=== PATIENT | female | born 1980 | race Caucasian/White ===

== ENCOUNTER 2020-09-20 13:47 | Emergency (ER) | payer MEDICARE, MEDICAID | END 2020-09-20 15:22 | disposition left against medical advice (07) | LOC: ER 13:48 | DX: R45.851 Suicidal ideations (principal); Z53.21 Procedure and treatment not carried out due to patient leaving prior to being seen by health care provider ==

== ENCOUNTER 2020-11-10 15:38 | Emergency (ER) | payer MEDICARE, MEDICAID ==
[~2020-11-10] VITALS: Ht 162.6 cm; Wt 72.7 kg
--- NOTE | 2020-11-10 15:56 | NUR ---
Pt received from [facility] after being a walkin to [facility] and being put on a 5150 for DTS. Pt cooperative with assessment. Flat/depressed affect.
[2020-11-10 16:40] LABS: BASOPHILS % (AUTO) 0.3 % (0-1); EOSINOPHILS # (AUTO) 0.1 X10'3 (0-0.9); HEMOGLOBIN 13.8 g/dl (12.0-16.0); LYMPHOCYTES # (AUTO) 2.7 X10'3 (1.1-4.8); LYMPHOCYTES % (AUTO) 24.2 % (21-51); MEAN CORPUSCULAR HEMOGLOBIN 29.6 PG (27.0-31.0); MEAN CORPUSCULAR HGB CONC 33.7 g/dL (33.0-36.5); MEAN CORPUSCULAR VOLUME 87.8 FL (78-98); MEAN PLATELET VOLUME 9.8 FL (7.4-10.4); MONOCYTES % (AUTO) 8.7 % (2-12); NEUTROPHILS # (AUTO) 7.3 X10'3 (1.8-7.7); NEUTROPHILS % (AUTO) 65.8 % (42-75); PLATELET COUNT 216 X10'3 (140-440); RED BLOOD COUNT 4.66 X10'6 (4.20-5.60); RED CELL DISTRIBUTION WIDTH 13.4 % (11.5-14.5); WHITE BLOOD COUNT 11.1 X10'3 (4.5-11.0)
[2020-11-10 16:54] LABS: D-DIMER 0.33 MG/L FEU (0-0.50)
[2020-11-10 17:07] LABS: ALANINE AMINOTRANSFERASE 18 U/L (12-78); ALBUMIN 4.1 G/DL (3.4-5.0); ALKALINE PHOSPHATASE 88 IU/L (46-116); ANION GAP 15 (8-16); ASPARTATE AMINO TRANSFERASE 10 U/L (10-37); BILIRUBIN,TOTAL 0.5 MG/DL (0.1-1.0); BLOOD UREA NITROGEN 13 MG/DL (7-18); BUN/CREATININE RATIO 10.7 (6.6-38.0); CALCIUM 8.8 MG/DL (8.5-10.1); CHLORIDE 106 MMOL/L (99-107); CREATININE 1.22 MG/DL (0.40-0.90); GLUCOSE 178 MG/DL (70-104); SODIUM 145 MMOL/L (135-145); TOTAL CARBON DIOXIDE 24.5 MMOL/L (24-32); TOTAL PROTEIN 8.3 G/DL (6.4-8.2); eGFR 48 ML/MIN
[2020-11-10 17:21] LABS: CLARITY,URINE SLIGHTLY CLOUDY (Clear); COLOR,URINE YELLOW (Yellow); GLUCOSE, URINE NEGATIVE (Neg); KETONES,URINE 15 mg/dl (Neg); LEUKOCYTE ESTERASE ,URINE TRACE (Neg); NITRITES, URINE NEGATIVE (Neg); OCCULT BLOOD,URINE NEGATIVE (Neg); PH,URINE 6.5 (4.8-8.0); PROTEIN,URINE 30 mg/dl (Neg); URINE HCG NEGATIVE (NEG)
[2020-11-10 17:24] LABS: ETHANOL < 0.010 GM/DL (0.0-0.010)
[2020-11-10 17:28] LABS: UA COLLECTION TYPE CLN CATCH MIDSTREAM
[2020-11-10 17:30] LABS: BACTERIA,URINE FEW /HPF (Neg); MUCUS STRANDS FEW /LPF (Neg); RBC,URINE NONE SEEN /HPF (0-2); SQUAMOUS EPITHELIAL CELL,UR MANY /LPF (FEW); WBC,URINE 0-4 /HPF (0-4)
[2020-11-10] MEDS ORDERED: potassium chloride 10mEq ER tablet PO STA (17:32)
[2020-11-10 17:36] LABS: URINE AMPHETAMINE SCREEN NEGATIVE (Neg); URINE BARBITUATE SCREEN NEGATIVE (Neg); URINE BENZODIAZEPINES SCREEN NEGATIVE (Neg); URINE CANNABINOID SCREEN POSITIVE (Neg); URINE COCAINE SCREEN NEGATIVE (Neg); URINE METHADONE SCREEN NEGATIVE (Neg); URINE OPIATE SCREEN NEGATIVE (Neg); URINE PHENCYCLIDINE SCREEN NEGATIVE (Neg)
--- NOTE | 2020-11-10 17:37 | NUR ---
Critical lab received from lab, potassium 3.0. Provider notified and order for pot chl. 40MeQ po ordered.
[2020-11-10] MEDS: potassium Cl 20 mEq SR tablet PO STA ×2 (17:45→17:46)
--- NOTE | 2020-11-10 19:50 | NUR ---
Patient is resting quietly, she has been up once to the commode using a walker.
--- NOTE | 2020-11-10 21:30 | NUR ---
relieving RN for break, pt is sleeping quietly on bed
--- NOTE | 2020-11-10 21:53 | NUR ---
Patient is sleeping quietly on her left side. No distress. Patient has self repositioned.
--- NOTE | 2020-11-11 01:06 | NUR ---
Patient sleeps quietly on her right side. No distress. She self repositions.
--- NOTE | 2020-11-11 03:22 | NUR ---
Patient remains asleep. She has self repositioned in bed. No distress noted.
[2020-11-11] MEDS ORDERED: SYN0.088T PO (08:07)
[2020-11-11] MEDS ORDERED: OMEP-50 PO (08:12)
[2020-11-11] MEDS ORDERED: METF500T PO (08:12)
[2020-11-11] MEDS ORDERED: OMEP40CA13 PO (08:12)
[2020-11-11] MEDS: levoTHYROXINE 88mcg tablet PO SCH (09:12)
[2020-11-11] MEDS: metFORMIN 500mg tablet PO SCH ×2 (09:12→20:25)
[2020-11-11] MEDS: pantoprazole 40mg Tablet.DR PO SCH (09:12)
--- NOTE | 2020-11-11 15:16 | NUR ---
[facility] office called about Kristi taking the patient but have concerns about the patients appetite and would rather wait on taking patient since she is not eating much. was told to call [facility] office if patient starts eating more
--- NOTE | 2020-11-11 15:52 | NUR ---
[facility] called for a nurse to nurse report.
--- NOTE | 2020-11-11 16:16 | NUR ---
Jessica from [facility] office called and patient has been accepted to [facility] inpatient facility by Dr. Peters at 15:57. [phone] Pt to be picked up tomorrow at 07:15 by [facility] dedicated local truck driver.
--- NOTE | 2020-11-11 18:30 | NUR ---
Assumed care. Patient finished dinner. C/O continuing depression. Cooperative, no distress.
[2020-11-11] MEDS ORDERED: traZODone 50mg tablet PO SCH (20:15)
[2020-11-11] MEDS ORDERED: traZODone 50mg tablet PO ONE (20:15)
--- NOTE | 2020-11-11 21:00 | NUR ---
Patient resting. Compliant with medications. No distress. In view from nurses station.
--- NOTE | 2020-11-11 21:15 | NUR ---
Breaking primary RN; patient resting comfortably on her side, light sleep, opens eyes and looks around then goes back to sleep.
--- NOTE | 2020-11-11 23:30 | NUR ---
Patient sleeping. No distress.
--- NOTE | 2020-11-12 01:30 | NUR ---
Up to bathroom, no distress. In view from nurses station.
[2020-11-12 05:41] VITALS: BP 106/65
--- NOTE | 2020-11-12 06:36 | NUR ---
Report to STEFANY Macdonald. Patient is sleeping quietly.
--- NOTE | 2020-11-12 07:14 | NUR ---
[facility] REPORTS [facility], [facility] INFORMS THEM THEY ARE SHORT STAFFED AND REQUESTING PT ARRIVAL IN THE AFTERNOON INSTEAD OF THIS MORNING.
[2020-11-12] MEDS: levoTHYROXINE 88mcg tablet PO SCH (07:35)
[2020-11-12] MEDS: pantoprazole 40mg Tablet.DR PO SCH (07:35)
[2020-11-12] MEDS: metFORMIN 500mg tablet PO SCH (07:36)
--- NOTE | 2020-11-12 08:17 | NUR ---
Patient up eating breakfast
[2020-11-12] MEDS ORDERED: traZODone 50mg tablet PO SCH (21:00)
== END 2020-11-12 11:16 ==
LOC: ER 15:38
DX: R45.851 Suicidal ideations (principal); Z20.822 Contact with and (suspected) exposure to COVID-19; E87.6 Hypokalemia; E11.9 Type 2 diabetes mellitus without complications; F41.9 Anxiety disorder, unspecified; F32.9 Major depressive disorder, single episode, unspecified; Z88.0 Allergy status to penicillin
CPT/HCPCS: 36415; 71046; 80053; 80305; 80320; 81001; 81025; 82948; 84443; 85025; 85379; 87635; 93005; 99285; C9803

== ENCOUNTER 2020-11-29 14:03 | Emergency (ER) | payer MEDICARE, MEDICAID ==
[~2020-11-29] VITALS: Ht 167.6 cm; Wt 68.2 kg
[~2020-11-29 14:03] MED LIST: METF500T PO; OMEP-50 PO; OMEP40CA21 PO; SYN0.088T PO
[2020-11-29] MEDS ORDERED: hydrOXYzine 25 MG tablet PO ONE (14:40)
[2020-11-29 15:44] VITALS: BP 134/87
== END 2020-11-29 15:51 | disposition home or self-care (01) ==
LOC: ER 14:04
DX: F41.0 Panic disorder [episodic paroxysmal anxiety] (principal); E11.9 Type 2 diabetes mellitus without complications; F32.9 Major depressive disorder, single episode, unspecified; F12.90 Cannabis use, unspecified, uncomplicated; Z88.0 Allergy status to penicillin; Z79.899 Other long term (current) drug therapy
CPT/HCPCS: 93005; 99283; Q0177

== ENCOUNTER 2020-12-02 18:06 | Emergency (ER) | payer MEDICARE, MEDICAID ==
[~2020-12-02] VITALS: Ht 162.6 cm; Wt 75.5 kg
[2020-12-02 18:55] VITALS: BP 122/77
[2020-12-02 19:47] LABS: BASOPHILS % (AUTO) 0.4 % (0-1); EOSINOPHILS # (AUTO) 0.1 X10'3 (0-0.9); EOSINOPHILS % (AUTO) 1.2 % (0-6); HEMATOCRIT 35.5 % (35.0-45.0); HEMOGLOBIN 12.3 g/dl (12.0-16.0); LYMPHOCYTES # (AUTO) 2.1 X10'3 (1.1-4.8); LYMPHOCYTES % (AUTO) 18.7 % (21-51); MEAN CORPUSCULAR HEMOGLOBIN 29.9 PG (27.0-31.0); MEAN CORPUSCULAR HGB CONC 34.5 g/dL (33.0-36.5); MEAN CORPUSCULAR VOLUME 86.8 FL (78-98); MEAN PLATELET VOLUME 8.9 FL (7.4-10.4); MONOCYTES # (AUTO) 1.1 X10'3 (0-0.9); MONOCYTES % (AUTO) 10.2 % (2-12); NEUTROPHILS # (AUTO) 7.6 X10'3 (1.8-7.7); NEUTROPHILS % (AUTO) 69.5 % (42-75); PLATELET COUNT 284 X10'3 (140-440); RED CELL DISTRIBUTION WIDTH 13.8 % (11.5-14.5); WHITE BLOOD COUNT 10.9 X10'3 (4.5-11.0)
[2020-12-02 20:26] LABS: ALANINE AMINOTRANSFERASE 22 U/L (12-78); ALBUMIN 3.6 G/DL (3.4-5.0); ALBUMIN/GLOBULIN RATIO 0.9 (1.1-1.5); ALKALINE PHOSPHATASE 76 IU/L (46-116); ANION GAP 11 (8-16); ASPARTATE AMINO TRANSFERASE 12 U/L (10-37); BILIRUBIN,TOTAL 0.3 MG/DL (0.1-1.0); BLOOD UREA NITROGEN 8 MG/DL (7-18); BUN/CREATININE RATIO 6.9 (6.6-38.0); CHLORIDE 106 MMOL/L (99-107); CREATININE 1.16 MG/DL (0.40-0.90); ETHANOL < 0.010 GM/DL (0.0-0.010); GLUCOSE 170 MG/DL (70-104); SODIUM 143 MMOL/L (135-145); TOTAL CARBON DIOXIDE 26.2 MMOL/L (24-32); TOTAL PROTEIN 7.6 G/DL (6.4-8.2); eGFR 51 ML/MIN
[2020-12-02 20:31] LABS: POTASSIUM 2.9 MMOL/L (3.5-5.1)
[2020-12-02] MEDS ORDERED: potassium Cl 20 mEq SR tablet PO ONE ×2 (20:40)
--- NOTE | 2020-12-02 21:55 | NUR ---
PT HAD VERY LOOSE BOWEL MOVEMENT IN [facility], STATED "I DIDN'T EVEN KNOW I DID IT." TAKEN TO BATHROOM TO CLEAN UP, NEW LINENS AND CLOTHING GIVEN.
[2020-12-03] MEDS ORDERED: CYCL-394 PO (00:14)
[2020-12-03] MEDS ORDERED: HYDR-3686 PO (00:14)
[2020-12-03] MEDS ORDERED: IBUP-1984 PO (00:14)
[2020-12-03] MEDS ORDERED: GABA-530 PO (00:14)
[2020-12-03 00:19] LABS: CLARITY,URINE CLOUDY (Clear); COLOR,URINE YELLOW (Yellow); GLUCOSE, URINE NEGATIVE (Neg); KETONES,URINE NEGATIVE (Neg); LEUKOCYTE ESTERASE ,URINE NEGATIVE (Neg); NITRITES, URINE NEGATIVE (Neg); OCCULT BLOOD,URINE TRACE-INTACT (Neg); PH,URINE 5.5 (4.8-8.0); PROTEIN,URINE TRACE mg/dl (Neg); UROBILINOGEN,URINE 0.2 E.U/dL (0.2-1.0)
[2020-12-03 00:26] LABS: UA COLLECTION TYPE CLN CATCH MIDSTREAM
[2020-12-03 00:28] LABS: AMORPHOUS URATES 4+; BACTERIA,URINE FEW /HPF (Neg); RBC,URINE 0-2 /HPF (0-2); SQUAMOUS EPITHELIAL CELL,UR FEW /LPF (FEW); WBC,URINE NONE SEEN /HPF (0-4)
--- NOTE | 2020-12-03 03:58 | NUR ---
Patient is asleep, low fowlers position in bed. No distress. This patient will interview when patient awakens.
[2020-12-03 05:18] LABS: ALANINE AMINOTRANSFERASE 18 U/L (12-78); ALBUMIN 3.3 G/DL (3.4-5.0); ALBUMIN/GLOBULIN RATIO 0.9 (1.1-1.5); ALKALINE PHOSPHATASE 73 IU/L (46-116); ANION GAP 9 (8-16); ASPARTATE AMINO TRANSFERASE 12 U/L (10-37); BILIRUBIN,TOTAL 0.5 MG/DL (0.1-1.0); BLOOD UREA NITROGEN 10 MG/DL (7-18); BUN/CREATININE RATIO 10.6 (6.6-38.0); CHLORIDE 108 MMOL/L (99-107); CREATININE 0.94 MG/DL (0.40-0.90); GLUCOSE 115 MG/DL (70-104); POTASSIUM 4.1 MMOL/L (3.5-5.1); SODIUM 144 MMOL/L (135-145); TOTAL CARBON DIOXIDE 26.9 MMOL/L (24-32); TOTAL PROTEIN 7.1 G/DL (6.4-8.2); eGFR 65 ML/MIN
[2020-12-03 05:36] LABS: URINE HCG NEGATIVE (NEG)
[2020-12-03 05:50] LABS: URINE AMPHETAMINE SCREEN NEGATIVE (Neg); URINE BARBITUATE SCREEN NEGATIVE (Neg); URINE BENZODIAZEPINES SCREEN NEGATIVE (Neg); URINE CANNABINOID SCREEN POSITIVE (Neg); URINE COCAINE SCREEN NEGATIVE (Neg); URINE METHADONE SCREEN NEGATIVE (Neg); URINE OPIATE SCREEN NEGATIVE (Neg); URINE PHENCYCLIDINE SCREEN NEGATIVE (Neg)
[2020-12-03] MEDS ORDERED: QUET50TA PO (07:38)
[2020-12-03] MEDS ORDERED: levoTHYROXINE 88mcg tablet PO SCH (08:00)
[2020-12-03] MEDS ORDERED: hydrOXYzine 25 MG tablet PO SCH (08:00)
[2020-12-03] MEDS ORDERED: ibuprofen tablet 400 MG TABLET PO SCH (08:00)
[2020-12-03] MEDS ORDERED: gabapentin 100mg capsule PO SCH (08:00)
[2020-12-03] MEDS ORDERED: metFORMIN 500mg tablet PO SCH (08:00)
[2020-12-03] MEDS ORDERED: pantoprazole 40mg Tablet.DR PO SCH (08:04)
--- NOTE | 2020-12-03 08:19 | NUR ---
PACKET FAXED TO [facility]
[2020-12-03] MEDS ORDERED: TRAZ-256 PO (09:20)
--- NOTE | 2020-12-03 15:08 | NUR ---
SLEEPING COMFORTABLY IN BED
[2020-12-03] MEDS ORDERED: PANT40TA54 PO (15:52)
[2020-12-03] MEDS ORDERED: HYDR50CA5 PO (15:52)
[2020-12-03] MEDS ORDERED: QUET100T33 PO (15:52)
[2020-12-03] MEDS ORDERED: cyclobenzaprine 10mg tablet PO SCH (21:00)
[2020-12-03] MEDS ORDERED: QUEtiapine 25mg tablet PO SCH (21:00)
[2020-12-04] MEDS ORDERED: pantoprazole 40mg Tablet.DR PO SCH (07:30)
== END 2020-12-03 15:19 ==
LOC: ER 18:06
DX: R45.851 Suicidal ideations (principal); R45.850 Homicidal ideations; F43.10 Post-traumatic stress disorder, unspecified; F41.9 Anxiety disorder, unspecified; R44.0 Auditory hallucinations; F60.9 Personality disorder, unspecified; F60.3 Borderline personality disorder; F31.9 Bipolar disorder, unspecified; E11.9 Type 2 diabetes mellitus without complications; F12.90 Cannabis use, unspecified, uncomplicated; Z88.0 Allergy status to penicillin; Z79.899 Other long term (current) drug therapy
CPT/HCPCS: 99285; Q0177; 36415; 80053; 80305; 80320; 81001; 81025; 84439; 84443; 85025; 87635; C9803

== ENCOUNTER 2021-12-13 11:58 | Emergency (ER) | payer MEDICAID, MEDICARE ==
[~2021-12-13] VITALS: Ht 162.6 cm; Wt 72.0 kg
[~2021-12-13 11:58] MED LIST changes: +HYDR50CA5 PO; +IBUP-1984 PO; -OMEP-50 PO; -OMEP40CA21 PO; +PANT40TA54 PO; +QUET100T34 PO; +TRAZ-256 PO
--- NOTE | 2021-12-13 12:20 | NUR ---
PT REFERRED TO ER BY URSULA ORTA, [facility],
--- NOTE | 2021-12-13 13:20 | NUR ---
Pt brought to the unit from the [facility]. Neg. Covid. Urinalysis done in the lob. She was referred here by a therapist named, Madeleine Escobar. Pt reports thoughts with a plan of suicide to jump out of a car. She said she has stopped drinking water in hopes "my body will shut down." Pt is living with her sister in a trailer with no running water or electricity. She missies her mother who in 2019. Pt is now sitting on the bed. Her eyes are closed she appear to be sleeping.
--- NOTE | 2021-12-13 15:49 | NUR ---
Pt is eating and drinking fluides. She had a sandwich, bruce crackers, juice and coffee and water. She does not feel like killing herself while she is here. She remains depressed over the loss of her mother.
[2021-12-13] MEDS ORDERED: ibuprofen tablet 400 MG TABLET PO SCH (16:00)
[2021-12-13 16:21] LABS: BASOPHILS # (AUTO) 0.1 X10'3 (0-0.2); BASOPHILS % (AUTO) 0.5 % (0-1); EOSINOPHILS # (AUTO) 0.2 X10'3 (0-0.9); HEMATOCRIT 39.5 % (35.0-45.0); HEMOGLOBIN 13.5 g/dl (12.0-16.0); LYMPHOCYTES # (AUTO) 2.5 X10'3 (1.1-4.8); LYMPHOCYTES % (AUTO) 23.4 % (21-51); MEAN CORPUSCULAR HEMOGLOBIN 30.1 PG (27.0-31.0); MEAN CORPUSCULAR HGB CONC 34.2 g/dL (33.0-36.5); MEAN CORPUSCULAR VOLUME 87.9 FL (78-98); MEAN PLATELET VOLUME 10.3 FL (7.4-10.4); MONOCYTES % (AUTO) 9.1 % (2-12); PLATELET COUNT 187 X10'3 (140-440); RED BLOOD COUNT 4.49 X10'6 (4.20-5.60); RED CELL DISTRIBUTION WIDTH 13.1 % (11.5-14.5); WHITE BLOOD COUNT 10.8 X10'3 (4.5-11.0)
[2021-12-13 16:32] LABS: ALANINE AMINOTRANSFERASE 21 U/L (12-78); ALBUMIN 3.3 G/DL (3.4-5.0); ALBUMIN/GLOBULIN RATIO 0.9 (1.1-1.5); ALKALINE PHOSPHATASE 79 IU/L (46-116); ANION GAP 7 (8-16); ASPARTATE AMINO TRANSFERASE 14 U/L (10-37); BILIRUBIN,TOTAL 0.2 MG/DL (0.1-1.0); BLOOD UREA NITROGEN 8 MG/DL (7-18); BUN/CREATININE RATIO 10.5 (6.6-38.0); CALCIUM 8.5 MG/DL (8.5-10.1); CHLORIDE 105 MMOL/L (99-107); CREATININE 0.76 MG/DL (0.40-0.90); ETHANOL < 0.010 GM/DL (0.0-0.010); GLUCOSE 166 MG/DL (70-104); POTASSIUM 3.8 MMOL/L (3.5-5.1); SODIUM 143 MMOL/L (135-145); TOTAL CARBON DIOXIDE 31.2 MMOL/L (24-32); TOTAL PROTEIN 7.1 G/DL (6.4-8.2); eGFR 83 ML/MIN
--- NOTE | 2021-12-13 17:18 | NUR ---
Pt has been calm and cooperative. She ate 100% of her dinner. She called her sister earlier. She is sitting quietly on her bed.
[2021-12-13 18:29] LABS: URINE HCG NEGATIVE (NEG)
[2021-12-13 18:40] LABS: URINE AMPHETAMINE SCREEN NEGATIVE (Neg); URINE BARBITUATE SCREEN NEGATIVE (Neg); URINE BENZODIAZEPINES SCREEN NEGATIVE (Neg); URINE CANNABINOID SCREEN POSITIVE (Neg); URINE COCAINE SCREEN NEGATIVE (Neg); URINE METHADONE SCREEN NEGATIVE (Neg); URINE OPIATE SCREEN NEGATIVE (Neg); URINE PHENCYCLIDINE SCREEN NEGATIVE (Neg)
--- NOTE | 2021-12-13 18:41 | NUR ---
One to one with the patient and updated on the plan of care. Assessed for severity of depressive symptoms and self harm risk. The patient is reporting that she is suicidal and unable to be safe if not admitted to a psychiatric hospital. She stated that she has on been in the state of [place] for several weeks and staying with her sister in a trailer without electricty and water. She reports prior disagnosis include Borderline Personality disorder, anxiety, depression and PTSD
[2021-12-13] MEDS ORDERED: hydrOXYzine 25 MG tablet PO PRN (18:50)
[2021-12-13] MEDS ORDERED: ibuprofen tablet 400 MG TABLET PO PRN (18:50)
--- NOTE | 2021-12-13 18:53 | NUR ---
Packet sent to [facility]
--- NOTE | 2021-12-13 18:54 | NUR ---
Packet sent to [facility]
[2021-12-13] MEDS ORDERED: traZODone 50mg tablet PO SCH (20:00)
--- NOTE | 2021-12-13 20:35 | NUR ---
The patient appears to be sleeping
--- NOTE | 2021-12-13 22:30 | NUR ---
The patient appears to be sleeping
--- NOTE | 2021-12-14 00:56 | NUR ---
The patient appears to be sleeping
--- NOTE | 2021-12-14 02:25 | NUR ---
The patient appears to be sleeping
--- NOTE | 2021-12-14 03:54 | NUR ---
The patient appears to be sleeping
--- NOTE | 2021-12-14 04:54 | NUR ---
The patient appears to be sleeping
[2021-12-14] MEDS ORDERED: levoTHYROXINE 75mcg tablet PO SCH (07:00)
--- NOTE | 2021-12-14 07:07 | NUR ---
The patient is resting on her bed. She stated that she feels she did get some sleep. She is pending [facility] evaluation
--- NOTE | 2021-12-14 08:12 | NUR ---
The patient is sitting up and eating breakfast. 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
--- NOTE | 2021-12-14 08:41 | NUR ---
[facility] at the bedside and assessing the patient
--- NOTE | 2021-12-14 09:03 | NUR ---
Mickey jose in ED - 12/14/21 at 0917 by JACQUES The patient is refusing to get up to ambulate. She states the walker makes her unbalanced.
--- NOTE | 2021-12-14 09:17 | NUR ---
The patient is resting on her bed. She is awake and talking with registration
[2021-12-14 11:02] VITALS: BP 134/92
== END 2021-12-14 11:06 ==
LOC: ER 11:58
DX: R45.851 Suicidal ideations (principal); Z20.822 Contact with and (suspected) exposure to COVID-19; E11.9 Type 2 diabetes mellitus without complications; Z88.0 Allergy status to penicillin; Z79.2 Long term (current) use of antibiotics
CPT/HCPCS: 36415; 80053; 80305; 80320; 81025; 85025; 87811; 99285; Q0177

== ENCOUNTER 2024-04-25 19:29 | Emergency (ER) | payer BC, MEDICAID ==
[~2024-04-25 19:29] MED LIST changes: +BACL-11 PO; +GLIP5TAB23 PO; +HYDR-3686 PO; -HYDR50CA5 PO; -IBUP-1984 PO; +LAMO25TA5 PO; +LEVO100T9 PO; +LISI10TA27 PO; -METF500T PO; -PANT40TA54 PO; +PROP10TA10 PO; -QUET100T34 PO; -SYN0.088T PO; -TRAZ-256 PO; +ZIPR40CA14 PO
[2024-04-25] MEDS ORDERED: DOXY-460 PO (22:54)
[2024-04-25 23:20] VITALS: BP 114/76; PULSE 90; TEMP 98.7; O2SAT 97
[2024-04-25 23:21] VITALS: RESP 16
== END 2024-04-25 23:39 | disposition home or self-care (01) ==
LOC: ER 19:29 → EEVIPCON 19:29 → ER 23:39
DX: L03.113 Cellulitis of right upper limb (principal); L03.115 Cellulitis of right lower limb; T76.21XA Adult sexual abuse, suspected, initial encounter; E11.9 Type 2 diabetes mellitus without complications; F41.9 Anxiety disorder, unspecified; F32.A Depression, unspecified; F12.90 Cannabis use, unspecified, uncomplicated; Z88.0 Allergy status to penicillin; Z88.2 Allergy status to sulfonamides; Z79.899 Other long term (current) drug therapy
CPT/HCPCS: 99283

== ENCOUNTER 2024-05-14 02:44 | Emergency (ER) | payer BC, MEDICAID ==
[~2024-05-14] VITALS: Ht 165.1 cm; Wt 54.5 kg
[2024-05-14 02:50] VITALS: TEMP 97
[2024-05-14 05:58] VITALS: BP 140/100; PULSE 80; RESP 16; O2SAT 98
== END 2024-05-14 06:03 | disposition home or self-care (01) ==
LOC: ER 02:45
DX: M25.571 Pain in right ankle and joints of right foot (principal); E11.9 Type 2 diabetes mellitus without complications; F12.90 Cannabis use, unspecified, uncomplicated; F41.9 Anxiety disorder, unspecified; F32.A Depression, unspecified; Z59.00 Homelessness unspecified; Z88.2 Allergy status to sulfonamides; Z88.0 Allergy status to penicillin; Z79.899 Other long term (current) drug therapy
CPT/HCPCS: 99281; 99283

== ENCOUNTER 2024-05-16 19:22 | Emergency (ER) | payer BC, MEDICAID ==
[~2024-05-16] VITALS: Ht 162.6 cm; Wt 63.6 kg
[2024-05-16 20:31] LABS: BASOPHILS # (AUTO) 0.1 X10'3 (0-0.2); BASOPHILS % (AUTO) 0.6 % (0-1); EOSINOPHILS # (AUTO) 0.2 X10'3 (0-0.9); EOSINOPHILS % (AUTO) 1.7 % (0-6); HEMATOCRIT 35.7 % (35.0-45.0); HEMOGLOBIN 12.1 g/dl (12.0-16.0); LYMPHOCYTES # (AUTO) 3.5 X10'3 (1.1-4.8); LYMPHOCYTES % (AUTO) 34.8 % (21-51); MEAN CORPUSCULAR HEMOGLOBIN 30.7 PG (27.0-31.0); MEAN CORPUSCULAR HGB CONC 33.8 g/dL (33.0-36.5); MEAN CORPUSCULAR VOLUME 90.8 FL (78-98); MEAN PLATELET VOLUME 9.2 FL (7.4-10.4); MONOCYTES # (AUTO) 1.1 X10'3 (0-0.9); MONOCYTES % (AUTO) 10.7 % (2-12); NEUTROPHILS # (AUTO) 5.2 X10'3 (1.8-7.7); NEUTROPHILS % (AUTO) 52.2 % (42-75); PLATELET COUNT 238 X10'3 (140-440); RED BLOOD COUNT 3.94 X10'6 (4.20-5.60)
[2024-05-16] MEDS ORDERED: CLIN150C99 PO (20:52)
[2024-05-16] MEDS ORDERED: METF-1203 PO (20:52)
[2024-05-16] MEDS ORDERED: TRAZ-251 PO (20:52)
[2024-05-16] MEDS ORDERED: LEVO150T8 PO (20:52)
[2024-05-16] MEDS ORDERED: HYDR50CA5 PO (20:52)
[2024-05-16] MEDS ORDERED: ATOR10TA70 PO (20:52)
[2024-05-16] MEDS ORDERED: GABAPENTIN PO (20:52)
[2024-05-16 21:00] LABS: ALBUMIN 3.6 G/DL (3.4-5.0); ANION GAP 9 (8-16); BLOOD UREA NITROGEN 18 MG/DL (7-18); BUN/CREATININE RATIO 21.7 (10.0-20.0); CALCIUM 8.8 MG/DL (8.5-10.1); CHLORIDE 102 MMOL/L (99-107); CREATININE 0.83 MG/DL (0.40-0.90); ETHANOL < 10 MG/DL (<10); GLUCOSE 166 MG/DL (70-104); POTASSIUM 3.2 MMOL/L (3.5-5.1); SODIUM 137 MMOL/L (135-145); THYROID STIMULATING HORMONE 16.56 ulU/ml (0.34-4.50); TOTAL CARBON DIOXIDE 25.6 MMOL/L (24-32); eCRCL 74 ML/MIN; eGFR 74 ML/MIN
[2024-05-16] MEDS: ziprasidone IM 20mg inj **IM only ONE (22:10)
[2024-05-16 23:08] LABS: MAGNESIUM 1.7 MG/DL (1.5-2.4)
[2024-05-16] MEDS ORDERED: hydrOXYzine 25 MG tablet PO PRN (23:35)
[2024-05-16] MEDS: magnesium oxide 400mg tablet PO ONE (23:59)
[2024-05-16] MEDS: potassium Cl 20 mEq SR tablet PO ONE (23:59)
[2024-05-16] MEDS: clindamycin 150mg capsule PO SCH (23:59)
[2024-05-17 05:59] LABS: URINE HCG NEGATIVE (NEG)
[2024-05-17 06:07] LABS: BILIRUBIN,URINE NEGATIVE (Neg); CLARITY,URINE CLEAR (Clear); COLOR,URINE YELLOW (Yellow); GLUCOSE, URINE NEGATIVE (Neg); KETONES,URINE NEGATIVE (Neg); LEUKOCYTE ESTERASE ,URINE NEGATIVE (Neg); NITRITES, URINE NEGATIVE (Neg); OCCULT BLOOD,URINE NEGATIVE (Neg); PROTEIN,URINE NEGATIVE (Neg); UROBILINOGEN,URINE 0.2 E.U/dL (0.2-1.0)
[2024-05-17 06:11] LABS: UA COLLECTION TYPE VOIDED
[2024-05-17 06:16] LABS: URINE AMPHETAMINE SCREEN NEGATIVE (Neg); URINE BARBITUATE SCREEN NEGATIVE (Neg); URINE BENZODIAZEPINES SCREEN NEGATIVE (Neg); URINE CANNABINOID SCREEN POSITIVE (Neg); URINE COCAINE SCREEN NEGATIVE (Neg); URINE METHADONE SCREEN NEGATIVE (Neg); URINE OPIATE SCREEN NEGATIVE (Neg); URINE PHENCYCLIDINE SCREEN NEGATIVE (Neg)
[2024-05-17] MEDS: metFORMIN 500mg tablet PO SCH (07:25)
[2024-05-17] MEDS: levoTHYROXINE 75mcg tablet PO SCH (07:25)
[2024-05-17] MEDS: gabapentin 300mg capsule PO SCH (07:25)
[2024-05-17] MEDS: atorvastatin 10mg tablet PO SCH (07:26)
[2024-05-17 09:09] VITALS: BP 104/56; PULSE 92; RESP 15; TEMP 98.3; O2SAT 99
[2024-05-17] MEDS ORDERED: traZODone 50mg tablet PO SCH (21:00)
== END 2024-05-17 09:27 | disposition home or self-care (01) ==
LOC: ER 19:23
DX: E03.9 Hypothyroidism, unspecified (principal); E11.9 Type 2 diabetes mellitus without complications; F12.90 Cannabis use, unspecified, uncomplicated; F41.9 Anxiety disorder, unspecified; F32.A Depression, unspecified; Z20.822 Contact with and (suspected) exposure to COVID-19; Z91.199 Patient's noncompliance with other medical treatment and regimen due to unspecified reason; Z88.0 Allergy status to penicillin; Z88.2 Allergy status to sulfonamides; Z88.8 Allergy status to other drugs, medicaments and biological substances; Z79.899 Other long term (current) drug therapy
CPT/HCPCS: 36415; 80048; 80305; 80320; 81003; 81025; 83735; 84443; 85025; 87811; 96372; 99284; J3486

== ENCOUNTER 2024-09-07 03:10 | Emergency (ER) | payer BC, MEDICAID ==
[~2024-09-07] VITALS: Ht 157.5 cm; Wt 72.7 kg
[~2024-09-07 03:10] MED LIST changes: +ATOR10TA70 PO; -BACL-11 PO; +GABAPENTIN PO; -GLIP5TAB23 PO; -HYDR-3686 PO; +HYDR50CA5 PO; -LAMO25TA5 PO; -LEVO100T9 PO; +LEVO150T8 PO; -LISI10TA27 PO; +METF-1203 PO; -PROP10TA10 PO; +TRAZ-251 PO; -ZIPR40CA14 PO
[2024-09-07 04:14] LABS: BASOPHILS # (AUTO) 0.1 X10'3 (0-0.2); BASOPHILS % (AUTO) 0.5 % (0-1); EOSINOPHILS # (AUTO) 0.2 X10'3 (0-0.9); EOSINOPHILS % (AUTO) 1.1 % (0-6); HEMOGLOBIN 13.5 g/dl (12.0-16.0); LYMPHOCYTES # (AUTO) 2.1 X10'3 (1.1-4.8); LYMPHOCYTES % (AUTO) 14.6 % (21-51); MEAN CORPUSCULAR HEMOGLOBIN 30.6 PG (27.0-31.0); MEAN CORPUSCULAR HGB CONC 33.8 g/dL (33.0-36.5); MEAN CORPUSCULAR VOLUME 90.5 FL (78-98); MEAN PLATELET VOLUME 8.8 FL (7.4-10.4); MONOCYTES % (AUTO) 6.8 % (2-12); NEUTROPHILS # (AUTO) 11.1 X10'3 (1.8-7.7); PLATELET COUNT 270 X10'3 (140-440); RED BLOOD COUNT 4.41 X10'6 (4.20-5.60); RED CELL DISTRIBUTION WIDTH 13.6 % (11.5-14.5); WHITE BLOOD COUNT 14.4 X10'3 (4.5-11.0)
[2024-09-07 04:49] LABS: HCG SERUM QL NEGATIVE
[2024-09-07] MEDS: normal saline 1000ML IV soln IV ONE (04:52)
[2024-09-07] MEDS ORDERED: iohexol 300mg/ml 100ml inj. ONE (04:52)
[2024-09-07] MEDS: nystatin 15 GM ointment TP ONE (04:55)
[2024-09-07 05:03] LABS: ALBUMIN 4.1 G/DL (3.4-5.0); ANION GAP 11 (8-16); BLOOD UREA NITROGEN 21 MG/DL (7-18); BUN/CREATININE RATIO 32.8 (10.0-20.0); CHLORIDE 104 MMOL/L (99-107); CREATININE 0.64 MG/DL (0.40-0.90); GLUCOSE 139 MG/DL (70-104); MAGNESIUM 2.1 MG/DL (1.5-2.4); SODIUM 142 MMOL/L (135-145); TOTAL CARBON DIOXIDE 26.8 MMOL/L (24-32); eCRCL 87 ML/MIN; eGFR > 90 ML/MIN
[2024-09-07] MEDS ORDERED: NYST15CR36 TOP (05:51)
[2024-09-07] MEDS ORDERED: CEPH-585 PO (05:51)
[2024-09-07 06:19] VITALS: PULSE 110
[2024-09-07] MEDS: fluconazole 100mg tablet PO ONE (06:41)
[2024-09-07 07:59] VITALS: BP 95/57; RESP 18; TEMP 98.4; O2SAT 95
[2024-09-07] MEDS ORDERED: DOXY-462 PO (12:36)
== END 2024-09-07 12:32 | disposition home or self-care (01) ==
LOC: ER 03:11
DX: B37.49 Other urogenital candidiasis (principal); E11.9 Type 2 diabetes mellitus without complications; Z88.0 Allergy status to penicillin; Z88.2 Allergy status to sulfonamides; Z88.1 Allergy status to other antibiotic agents
CPT/HCPCS: 36415; 71045; 74177; 80048; 83605; 83735; 84145; 84703; 85025; 87040; 93005; 96360; 99285; J7030; Q9967

== ENCOUNTER 2025-01-23 03:20 | Emergency (ER) | payer BC, MEDICAID ==
[~2025-01-23] VITALS: Ht 162.6 cm; Wt 58.0 kg
[~2025-01-23 03:20] MED LIST changes: +NYST15CR TOP
[2025-01-23 03:27] VITALS: BP 125/95; PULSE 98; TEMP 96.8; O2SAT 98
[2025-01-23 03:44] VITALS: RESP 16
[2025-01-23] MEDS ORDERED: DOXY100C43 PO (04:11)
--- NOTE | 2025-01-23 04:11 | Physician Documentation ---
History of Present Illness ~ Chief Complaint: Wound Stated Complaint: WOUNDS Time Seen by MD: 03:55 Primary Medical Doctor: None Mode of Arrival: Ambulatory HPI 44 year old female with multiple wounds over legs, arms, face, hands. "I pick at myself." She would like to drink some fluids and eat some food. Tetanus within 5 years?: No Medication Reconciliation Allergies: Coded Allergies: Penicillins (Verified Allergy, Unknown, 01/23/25) sulfamethoxazole (Verified Allergy, Unknown, 01/23/25) trimethoprim (Verified Allergy, Unknown, 01/23/25) Scheduled Atorvastatin Calcium (Atorvastatin Calcium), 1 TAB PO DAILY, (Reported) Levothyroxine Sodium (Levothyroxine Sodium), 1 TAB PO DAILY, (Reported) Metformin HCl (Metformin HCl), 1 TAB PO DAILY, (Reported) Nystatin (Nystatin), 1 APPLIC TOP Q8H Trazodone HCl (Trazodone HCl), 1 TAB PO HS, (Reported) [Gabapentin], 300 MG PO TID, (Reported) Scheduled PRN Hydroxyzine Pamoate (Hydroxyzine Pamoate), 50 MG PO Q6H PRN for for anxiety/agitation, (Reported) Past Medical History Past Medical History: *ETL LEAD*, Diabetes, Anxiety, Depression Past Surgical History: noncontributory Patient History: FH: bipolar disorder MOTHER FH: depression MOTHER FHx: diabetes mellitus MOTHER Alcohol Use: None Drug Use: marijuana Lives with: Family Lives In: Home Review of Systems All Other Systems at this time: Reviewed and Negative Physical Exam Vital Signs: RN Vital Signs have been reviewed: Yes, Temperature: 96.8, Source: Temporal, Heart Rate: 98, Respiratory Rate: 16, BP: 125/95, Pulse Oximetry: 98, Weight: 58.000 Physical Exam HEENT: PERRL, moist oral mucosa, EOMI Pulmonary: No respiratory distress MSK: no deformity Skin: w/d/i, no rash; abrasions over shins, forearms, hands. LLE abrasions appear erythematous, with purulent discharge Neuro: alert, nonfocal Psych: normal affect Progress Results/Orders Results/Orders Vital Signs 01/23/25 01/23/25 03:27 03:44 Temp 96.8 Pulse 98 Resp 15 16 B/P (MAP) 125/95 Pulse Ox 98 Medical Decision Making Findings 44 year old female with apparent self-induced excoriations, some of them appearing infected. Rx ABx and return precautions. Differential Dx:Considerations: Include: Abscess, Cellulitis, Healing wound Departure Disposition: 01 HOME / SELF CARE / HOMELESS Impression: Primary Impression: Wound cellulitis Condition: Stable Discharge Instructions: How to Change Your Wound Dressing Referrals: NO PRIMARY CARE PROVIDER (PCP) Prescriptions Doxycycline Monohydrate (Doxycycline Monohydrate) 100 Mg Capsule 100 MG PO BID, #14 CAP may sub doxycycline hyclate or azithromycin z-pack as prescribed Prov: LEOPOLDO SCOTT MD 01/23/25 Education Educated: Patient Educated regarding: diagnosis, treatment, prognosis, need for follow up Signature Scribe Signature: . Attestation: . LEOPOLDO SCOTT MD Jan 23, 2025 04:11
[2025-01-23] MEDS: DOXYCYCLINE 100MG CAPSULE PO STA (04:27)
== END 2025-01-23 04:24 | disposition home or self-care (01) ==
LOC: ER 03:20
DX: L03.221 Cellulitis of neck (principal); L03.113 Cellulitis of right upper limb; L03.114 Cellulitis of left upper limb; E11.9 Type 2 diabetes mellitus without complications; F41.9 Anxiety disorder, unspecified; F32.A Depression, unspecified; Z88.0 Allergy status to penicillin; Z88.1 Allergy status to other antibiotic agents; Z88.2 Allergy status to sulfonamides; Z88.8 Allergy status to other drugs, medicaments and biological substances
CPT/HCPCS: 99283

== ENCOUNTER 2025-02-06 16:48 | Emergency (ER) | payer BC, MEDICAID ==
[~2025-02-06] VITALS: Ht 162.6 cm; Wt 45.0 kg
[~2025-02-06 16:48] MED LIST changes: +DOXY100C43 PO
[2025-02-06 17:11] VITALS: BP 122/91; PULSE 102; TEMP 97.7; O2SAT 97
[2025-02-06 17:13] VITALS: RESP 14
[2025-02-06] MEDS: ketorolac trometh 15mg/ml vial 15 MG/ML ML IM ONE (17:33)
[2025-02-06] MEDS: HYDROcodone/acetaminophen 10/325mg tab PO ONE (17:33)
[2025-02-06 17:57] LABS: MEAN PLATELET VOLUME 8.7 FL (7.4-10.4); RED CELL DISTRIBUTION WIDTH 13.6 % (11.5-14.5)
[2025-02-06 18:11] LABS: CREATININE 0.95 MG/DL (0.40-0.90); TOTAL CARBON DIOXIDE 29.7 MMOL/L (24-32); eCRCL 53 ML/MIN; eGFR 63 ML/MIN
== END 2025-02-06 18:38 | disposition left against medical advice (07) ==
LOC: ER 16:48
DX: Z53.21 Procedure and treatment not carried out due to patient leaving prior to being seen by health care provider (principal)
CPT/HCPCS: 36415; 80053; 83605; 85025; 87040; 87070; 87077; 87186